=== PATIENT | female | born 1985 | race Caucasian/White ===

== ENCOUNTER 2017-06-17 09:18 | Emergency (ER) | payer BC ==
--- NOTE | 2017-06-17 09:40 | UC ---
Lower Extremity/Ankle HPI - HPI Summary HPI Summary: left lateral ankle pain and swelling slow onset after rolling her ankle 5 days ago. No bruising. - History of Current Complaint Stated Complaint: LEFT FOOT/ANKLE SWELLING Time Seen by Provider: 06/17/17 09:22 Hx Obtained From: Patient Hx Last Menstrual Period: unknown ?: No Onset/Duration: Gradual Onset, Lasting Days Severity Initially: Mild Severity Currently: Mild Aggravating Factor(s): Standing, Ambulation Alleviating Factor(s): Rest Able to Bear Weight: Yes - Allergies/Home Medications Allergies/Adverse Reactions: Allergies Allergy/AdvReac Type Severity Reaction Status Date / Time No Known Allergies Allergy Verified 10/30/16 21:58 PMH/Surg Hx/FS Hx/Imm Hx Previously Healthy: No - prior right ankle fracture. - Surgical History Surgical History: None - Family History Known Family History: Positive: Other - no related fh of ankle issues. Negative: Hypertension - Social History Occupation: Employed Full-time Alcohol Use: None Substance Use Type: None Smoking Status (MU): Heavy Every Day Tobacco Smoker Review of Systems Musculoskeletal: Arthralgia All Other Systems Reviewed And Are Negative: Yes Physical Exam Triage Information Reviewed: Yes Appearance: Well-Appearing, No Pain Distress, Well-Nourished Vital Signs Reviewed: Yes Eye Exam: Normal ENT Exam: Normal Neck exam: Normal Respiratory Exam: Normal Cardiovascular Exam: Normal Abdominal Exam: Normal Musculoskeletal Exam: Other - no denise tenderness of the latera or medial ankle. There is mild swelling and tenderness below the lateral malleolus without bruising. neg talar tilt or anterior drawer. no calf pain or swelling. Neurological Exam: Normal Psychological Exam: Normal Skin Exam: Normal Lower Extremity Course/Dx - Course Course Of Treatment: tonto apache ankle rules neg. - Differential Dx/Diagnosis Provider Diagnoses: left ankle sprain. Discharge - Discharge Plan Condition: Good Disposition: HOME Patient Education Materials: Ankle Sprain (ED) Forms: *Work Release Additional Instructions: denise wrap, elevate, ice.
[2017-06-17 09:41] VITALS: BP 140/88
== END 2017-06-17 09:44 | disposition home or self-care (01) ==
LOC: UCCORT 09:18
DX: S93.402A Sprain of unspecified ligament of left ankle, initial encounter (principal); X58.XXXA Exposure to other specified factors, initial encounter; Y93.9 Activity, unspecified; Y92.9 Unspecified place or not applicable; F17.210 Nicotine dependence, cigarettes, uncomplicated
CPT/HCPCS: 99211; G0463